=== PATIENT | female | born 1980 | race Caucasian/White ===

== ENCOUNTER 2016-12-28 11:02 | Inpatient (IN) | payer BC ==
[2016-12-28] VITALS (13 sets, daily range): BP systolic 131–183; BP diastolic 83–106
[~2016-12-28] VITALS: Ht 172.7 cm; Wt 117.0 kg
[~2016-12-28 11:02] MED LIST: ALDOMET500 MG PO; Motrin PO; Percocet 5/325,Endoc PO
[2016-12-28 11:48] LABS: EOSINOPHIL (%) 0.3 % (0-5); HEMATOCRIT 38.2 % (36.0-46.0); IMMATURE GRANULOCYTE (%) 0.4 % (0.0-0.7); IMMATURE GRANULOCYTE COUNT 0.1 K/uL; INSTRUMENT ABS NEUTROPHIL CT 9.1 K/uL; LYMPHOCYTE COUNT 2.3 K/uL (1.0-2.8); MCH 32.2 PG (29.0-34.0); MCHC 34.6 G/DL (30.0-36.0); MCV 93.2 FL (83-99); MEAN PLAT.VOLUME 9.7 uM^3 (9.5-12.4); MONOCYTE (%) 4.5 % (3-12); MONOCYTE COUNT 0.6 K/uL (0-0.8); NEUTROPHIL (%) 75.5 % (45-76); NEUTROPHIL COUNT 9.1 K/uL (1.8-6.4); PLATELET COUNT 215 K/uL (156-360); RBC DIS.WIDTH-CV 13.9 % (11.8-14.6); RBC DIS.WIDTH-SD 46.8 % (39-53); WHITE BLOOD COUNT 12.1 K/uL (4.1-10.2)
[2016-12-28 12:23] LABS: ALKALINE PHOSPHATASE 70 IU/L (3-129); ANION GAP 11 MEQ/L (2-14); CHLORIDE 105 MEQ/L (99-109); GFR ESTIMATE (CALCULATED) > 59 mL/min/; GLUCOSE 67 mg/dL (70-99); LACTATE DEHYDROGENASE 109 IU/L (20-246); POTASSIUM 3.9 MEQ/L (3.7-5.4); SAMPLE HEMOLYSIS CHECK 0; SAMPLE ICTERIC CHECK 0; SAMPLE LIPEMIA CHECK 0; SODIUM 138 MEQ/L (136-147); TOTAL BILIRUBIN 0.4 MG/DL (0.0-1.0); UREA NITROGEN (BUN) 7 mg/dL (9-23); URIC ACID 5.2 mg/dL (3.1-9.2)
[2016-12-28 13:42] LABS: UR CREATININE CONCENTRATION 68.9 MG/DL
[2016-12-28 14:00] LABS: POINT-OF-CARE METER ID UU14188576
[2016-12-28 15:32] LABS: EOSINOPHIL (%) 0.2 % (0-5); HEMATOCRIT 34.6 % (36.0-46.0); IMMATURE GRANULOCYTE (%) 0.6 % (0.0-0.7); IMMATURE GRANULOCYTE COUNT 0.1 K/uL; INSTRUMENT ABS NEUTROPHIL CT 8.2 K/uL; LYMPHOCYTE COUNT 2.1 K/uL (1.0-2.8); MCH 31.9 PG (29.0-34.0); MCHC 34.7 G/DL (30.0-36.0); MEAN PLAT.VOLUME 9.7 uM^3 (9.5-12.4); MONOCYTE (%) 3.8 % (3-12); MONOCYTE COUNT 0.4 K/uL (0-0.8); NEUTROPHIL (%) 75.7 % (45-76); NEUTROPHIL COUNT 8.2 K/uL (1.8-6.4); PLATELET COUNT 215 K/uL (156-360); RBC DIS.WIDTH-CV 13.9 % (11.8-14.6); RED BLOOD COUNT 3.76 M/uL (3.80-5.20); WHITE BLOOD COUNT 10.9 K/uL (4.1-10.2)
[2016-12-28] MEDS ORDERED: CHILDREN'S ASPI81 M1 PO (15:56)
[2016-12-28] MEDS ORDERED: PRENATAL TABLE1 EAC3 PO (15:56)
[2016-12-28] MEDS ORDERED: ALDOMET500 MG PO (15:56)
[2016-12-29] VITALS (35 sets, daily range): BP systolic 127–187; BP diastolic 66–106
[2016-12-29 13:08] LABS: POINT-OF-CARE METER ID UU13113692
[2016-12-29 13:08] LABS: POINT-OF-CARE METER ID UU13113692; POINT-OF-CARE USER ID 608261309
[2016-12-29 13:08] LABS: POINT-OF-CARE METER ID UU13113692
[2016-12-30] VITALS (15 sets, daily range): BP systolic 116–184; BP diastolic 61–107
[2016-12-30 05:49] LABS: POINT-OF-CARE METER ID UU13113692; POINT-OF-CARE USER ID 608261309
[2016-12-30 05:49] LABS: POINT-OF-CARE METER ID UU13113692; POINT-OF-CARE USER ID 608261309
[2016-12-31 02:49] VITALS: BP 140/83
[2016-12-31 08:08] LABS: EOSINOPHIL (%) 0.8 % (0-5); EOSINOPHIL COUNT 0.1 K/uL (0-0.3); HEMATOCRIT 30.1 % (36.0-46.0); IMMATURE GRANULOCYTE (%) 0.5 % (0.0-0.7); IMMATURE GRANULOCYTE COUNT 0.1 K/uL; INSTRUMENT ABS NEUTROPHIL CT 6.7 K/uL; LYMPHOCYTE COUNT 2.2 K/uL (1.0-2.8); MCH 32.1 PG (29.0-34.0); MCHC 33.6 G/DL (30.0-36.0); MCV 95.6 FL (83-99); MEAN PLAT.VOLUME 9.7 uM^3 (9.5-12.4); MONOCYTE (%) 5.7 % (3-12); MONOCYTE COUNT 0.6 K/uL (0-0.8); NEUTROPHIL (%) 70.2 % (45-76); NEUTROPHIL COUNT 6.7 K/uL (1.8-6.4); PLATELET COUNT 152 K/uL (156-360); RBC DIS.WIDTH-CV 14.3 % (11.8-14.6); RBC DIS.WIDTH-SD 49.4 % (39-53); RED BLOOD COUNT 3.15 M/uL (3.80-5.20); WHITE BLOOD COUNT 9.6 K/uL (4.1-10.2)
[2016-12-31 09:05] VITALS: BP 155/92
[2016-12-31 15:30] VITALS: BP 149/87
== END 2016-12-31 17:15 | disposition home or self-care (01) | DRG 774 ==
LOC: LDRP-OP → 2WEST 11:03 → LDRP-OP 02-17 19:39
PROVIDERS: Advanced Practice Midwife; Obstetrics & Gynecology; Obstetrics & Gynecology Obstetrics
DX: O70.0 First degree perineal laceration during delivery (principal); O11.4 Pre-existing hypertension with pre-eclampsia, complicating childbirth; O10.02 Pre-existing essential hypertension complicating childbirth; O99.214 Obesity complicating childbirth; E66.9 Obesity, unspecified; Z68.33 Body mass index [BMI] 33.0-33.9, adult; O24.425 Gestational diabetes mellitus in childbirth, controlled by oral hypoglycemic drugs; O63.9 Long labor, unspecified; O63.0 Prolonged first stage (of labor); Z37.0 Single live birth; O09.523 Supervision of elderly multigravida, third trimester; Z3A.37 37 weeks gestation of pregnancy; D62 Acute posthemorrhagic anemia; O99.02 Anemia complicating childbirth
CPT/HCPCS: 80053; 82570; 82948; 83615; 84156; 84550; 85025; 85025 91; C1755; G0378; J0360; J2405; J3010; J7120

== ENCOUNTER 2018-02-22 20:42 | Inpatient (IN) | payer BC ==
[~2018-02-22] VITALS: Ht 175.3 cm; Wt 104.3 kg
[~2018-02-22 20:42] MED LIST changes: +CHILDREN'S ASPI81 M1 PO; +LOTENSIN10 MG PO; +NORVASC10 MG PO; +PRENATAL TABLE1 EAC3 PO
[2018-02-23 12:06] VITALS: BP 133/85
[2018-02-23 16:36] VITALS: BP 133/86
[2018-02-23 18:44] LABS: HEMATOCRIT 38.7 % (36.0-46.0); HEMOGLOBIN 13.4 G/DL (11.9-15.5); MCHC 34.6 G/DL (30.0-36.0); MCV 92.4 FL (83-99); PLATELET COUNT 225 K/uL (156-360); RBC DIS.WIDTH-CV 12.9 % (11.8-14.6); RBC DIS.WIDTH-SD 43.8 % (39-53); RED BLOOD COUNT 4.19 M/uL (3.80-5.20); WHITE BLOOD COUNT 15.1 K/uL (4.1-10.2)
[2018-02-23 19:11] LABS: CHLORIDE 103 MEQ/L (99-109); CREATININE 0.6 MG/DL (0.6-1.3); GFR ESTIMATE (CALCULATED) > 59 mL/min/; GLUCOSE 178 mg/dL (70-99); POTASSIUM 3.8 MEQ/L (3.7-5.4); SODIUM 138 MEQ/L (136-147); UREA NITROGEN (BUN) 11 mg/dL (9-23)
[2018-02-23 19:48] VITALS: BP 136/76
[2018-02-23 23:47] VITALS: BP 154/88
[2018-02-24 04:39] VITALS: BP 134/88
[2018-02-24 06:02] LABS: HEMATOCRIT 34.6 % (36.0-46.0); HEMOGLOBIN 11.9 G/DL (11.9-15.5); MCH 32.2 PG (29.0-34.0); MCHC 34.4 G/DL (30.0-36.0); MCV 93.8 FL (83-99); PLATELET COUNT 257 K/uL (156-360); RBC DIS.WIDTH-CV 12.9 % (11.8-14.6); RBC DIS.WIDTH-SD 44.3 % (39-53); RED BLOOD COUNT 3.69 M/uL (3.80-5.20); WHITE BLOOD COUNT 10.4 K/uL (4.1-10.2)
[2018-02-24 06:21] LABS: CHLORIDE 103 MEQ/L (99-109); CREATININE 0.2 MG/DL (0.6-1.3); GFR ESTIMATE (CALCULATED) > 59 mL/min/; GLUCOSE 144 mg/dL (70-99); POTASSIUM 4.5 MEQ/L (3.7-5.4); SODIUM 136 MEQ/L (136-147); UREA NITROGEN (BUN) 8 mg/dL (9-23)
[2018-02-24 07:50] VITALS: BP 139/91
[2018-02-24 11:46] VITALS: BP 158/93
[2018-02-24 15:45] VITALS: BP 154/86
[2018-02-24 20:25] VITALS: BP 144/80
[2018-02-25 00:24] VITALS: BP 145/87
[2018-02-25 03:56] VITALS: BP 146/90
[2018-02-25 07:27] LABS: MCH 32.6 PG (29.0-34.0); MCHC 34.5 G/DL (30.0-36.0); MCV 94.5 FL (83-99); PLATELET COUNT 193 K/uL (156-360); RBC DIS.WIDTH-CV 12.9 % (11.8-14.6); RBC DIS.WIDTH-SD 44.8 % (39-53); RED BLOOD COUNT 3.07 M/uL (3.80-5.20); WHITE BLOOD COUNT 8.8 K/uL (4.1-10.2)
[2018-02-25 07:43] VITALS: BP 126/79
[2018-02-25 08:33] LABS: CHLORIDE 105 MEQ/L (99-109); CREATININE 0.6 MG/DL (0.6-1.3); GFR ESTIMATE (CALCULATED) > 59 mL/min/; POTASSIUM 4.1 MEQ/L (3.7-5.4); SODIUM 140 MEQ/L (136-147); UREA NITROGEN (BUN) 8 mg/dL (9-23)
[2018-02-25 08:41] LABS: GLUCOSE 102 mg/dL (70-99)
[2018-02-25] MEDS ORDERED: TRAMADOL HCL50 MG PO (09:09)
== END 2018-02-25 10:01 | disposition home or self-care (01) | DRG 742 ==
LOC: ENRESERV 20:42 → CANRESERV 20:42 → ENRESERV 20:49 → 2SOUTH 02-23 08:34 → ENRESERV 02-23 08:37 → 2SOUTH 02-23 09:03 → 2EAST 02-23 11:23 → 2EASTP 02-23 11:23 → 2SOUTH 02-23 11:33 → ENRESERV 02-23 11:33 → 2SOUTH 02-23 15:38 → 2EAST 02-23 16:16
PROVIDERS: Obstetrics & Gynecology Gynecologic Oncology
DX: D25.9 Leiomyoma of uterus, unspecified (principal); K50.90 Crohn's disease, unspecified, without complications; N13.5 Crossing vessel and stricture of ureter without hydronephrosis; N83.9 Noninflammatory disorder of ovary, fallopian tube and broad ligament, unspecified; Z87.891 Personal history of nicotine dependence; I10 Essential (primary) hypertension
CPT/HCPCS: 36415; 80048; 85027; 86850; 86870; 86900; 86901; 86905; 86920; 86999; 88305; 88307; J0690; J1100; J1170; J1650; J1885; J2250; J2405; J2710; J2765; J3010; J7643; Q0175